=== PATIENT | female | born 1930 | race Caucasian/White ===

== ENCOUNTER 2016-10-02 16:06 | Emergency (ER) | payer MEDICARE ==
[~2016-10-02] VITALS: Ht 165.1 cm; Wt 83.9 kg
[~2016-10-02 16:06] MED LIST: ANTIVERT/2525 M1 PO; ASPIRIN81 M1 PO; B12,B-12,B 12500 MC1 PO; CIPROFLOXACIN500 MG PO; FLEXERIL5 MG PO; HYDROCHLOROTH12.5 M1 PO; IMDUR30 MG PO; LASIX20 MG PO; LISINOPRIL10 MG PO; LOMOTIL 0.025 M1 TA1 PO; LOPRESSOR25 MG PO; Lopressor25 MG PO; PENICILLIN VK500 MG PO; PREDNISONE20 MG PO; PROZAC40 MG PO; PYRIDIUM200 MG PO; VICODIN 5-3001 EACH PO; Vicodin 5/500 505 MG PO; ZOCOR40 MG PO; ZOFRAN ODT4 MG SL
[2016-10-02 16:14] VITALS: BP 140/62
[2016-10-02] MEDS ORDERED: ACETAMINOPHEN-O1 TAB PO (16:15)
[2016-10-02 16:34] LABS: BILIRUBIN NEGATIVE (NEGATIVE); BLOOD 2+ (NEGATIVE); CLARITY SL CLOUDY (CLEAR); COLOR YELLOW (YELLOW); GLUCOSE NEGATIVE (NEGATIVE); KETONE NEGATIVE (NEGATIVE); LEUKO ESTERASE 1+ (NEGATIVE); NITRITE NEGATIVE (NEGATIVE); PH 5.5 (5.0-9.0); PROTEIN TRACE (NEGATIVE)
[2016-10-02 16:38] LABS: WBC TNTC wbc/hpf (0-5)
[2016-10-02 16:39] LABS: BACTERIA 2+; URINE REFLEX COMMENT YES (NO)
[2016-10-02] MEDS ORDERED: BACTRIM DS 8001 TA1 PO (17:25)
[2016-10-02] MEDS ORDERED: CYCLOBENZAPRINE5 M3 PO (17:25)
== END 2016-10-02 17:27 | disposition home or self-care (01) ==
LOC: ED 16:06
PROVIDERS: Nurse Practitioner Family
DX: G89.29 Other chronic pain (principal); M54.5 Low back pain; I10 Essential (primary) hypertension; I71.4 Abdominal aortic aneurysm, without rupture; N39.0 Urinary tract infection, site not specified; R31.9 Hematuria, unspecified; Z79.82 Long term (current) use of aspirin; Z79.899 Other long term (current) drug therapy; E78.5 Hyperlipidemia, unspecified

== ENCOUNTER 2016-10-27 12:15 | Emergency (ER) | payer MEDICARE ==
[~2016-10-27 12:15] MED LIST changes: +ACETAMINOPHEN-O1 TAB PO; +BACTRIM DS 8001 TA1 PO; +CYCLOBENZAPRINE5 M3 PO
[2016-10-27 12:20] VITALS: BP 145/89
[2016-10-27] MEDS ORDERED: Orphenadrine C100 MG PO (14:33)
[2016-10-27] MEDS ORDERED: PROVENTIL0.09 MG/A1 INH (14:43)
[2016-10-27] MEDS ORDERED: VIBRAMYCIN100 MG PO (14:43)
[2016-10-27] MEDS ORDERED: DUONEB 3 MG/3 ML3 M1 INH (14:43)
== END 2016-10-27 14:41 | disposition home or self-care (01) ==
LOC: ED 12:15
DX: M48.54XA Collapsed vertebra, not elsewhere classified, thoracic region, initial encounter for fracture (principal); I10 Essential (primary) hypertension; E78.5 Hyperlipidemia, unspecified; Z79.82 Long term (current) use of aspirin; Z79.899 Other long term (current) drug therapy

== ENCOUNTER → 2016-12-01 | Outpatient (CLI) | payer MEDICARE ==
[~2016-12-01] MED LIST changes: +DUONEB 3 MG/3 ML3 M1 INH; +Orphenadrine C100 MG PO; +PROVENTIL0.09 MG/A1 INH; +VIBRAMYCIN100 MG PO
== END | disposition home or self-care (01) ==
LOC: MRI 12:57
DX: S22.000D Wedge compression fracture of unspecified thoracic vertebra, subsequent encounter for fracture with routine healing (principal); M48.04 Spinal stenosis, thoracic region; M47.894 Other spondylosis, thoracic region; X58.XXXD Exposure to other specified factors, subsequent encounter

== ENCOUNTER 2017-02-11 16:32 | Emergency (ER) | payer MEDICARE ==
[~2017-02-11] VITALS: Wt 81.6 kg
[2017-02-11 18:11] VITALS: BP 162/80
[2017-02-11] MEDS ORDERED: PERCOCET 5-3251 EACH PO (18:45)
== END 2017-02-11 18:47 | disposition home or self-care (01) ==
LOC: ED 16:32
DX: S32.019A Unspecified fracture of first lumbar vertebra, initial encounter for closed fracture (principal); W01.0XXA Fall on same level from slipping, tripping and stumbling without subsequent striking against object, initial encounter; Y93.89 Activity, other specified; Y99.8 Other external cause status; Y92.89 Other specified places as the place of occurrence of the external cause

== ENCOUNTER → 2017-02-15 | Outpatient (CLI) | payer MEDICARE ==
[~2017-02-15] MED LIST changes: +MEDROL DOSEPAK4 MG PO; +PERCOCET 5-3251 EACH PO
== END | disposition home or self-care (01) ==
LOC: MRI 13:00
DX: S32.010A Wedge compression fracture of first lumbar vertebra, initial encounter for closed fracture (principal); S22.080A Wedge compression fracture of T11-T12 vertebra, initial encounter for closed fracture; X58.XXXA Exposure to other specified factors, initial encounter; Y93.89 Activity, other specified; Y92.89 Other specified places as the place of occurrence of the external cause; Y99.8 Other external cause status

== ENCOUNTER 2017-02-16 14:44 | Emergency (ER) | payer MEDICARE ==
[~2017-02-16] VITALS: Ht 165.1 cm; Wt 81.6 kg
[~2017-02-16 14:44] MED LIST changes: -MEDROL DOSEPAK4 MG PO
[2017-02-16 14:49] VITALS: BP 134/72
[2017-02-16] MEDS ORDERED: MEDROL DOSEPAK4 MG PO (15:14)
== END 2017-02-16 15:19 | disposition home or self-care (01) ==
LOC: ED 14:44
DX: G89.29 Other chronic pain (principal); M54.5 Low back pain; Z98.890 Other specified postprocedural states; Z90.710 Acquired absence of both cervix and uterus; Z79.82 Long term (current) use of aspirin; Z79.899 Other long term (current) drug therapy

== ENCOUNTER 2017-04-09 12:48 | Emergency (ER) | payer MEDICARE ==
[~2017-04-09] VITALS: Ht 165.1 cm; Wt 81.6 kg
[~2017-04-09 12:48] MED LIST changes: +MEDROL DOSEPAK4 MG PO
[2017-04-09 12:59] VITALS: BP 162/71
[2017-04-09 13:58] LABS: HEMATOCRIT 39.6 % (37.0-47.0); MEAN CELL VOLUME 99.7 fl (81.0-99.0); MEAN CORPUSCULAR HGB 32.7 pg (27.0-31.0); MEAN CORPUSCULAR HGB CONC 32.8 g/dl (33.0-37.0); MEAN PLATELET VOLUME 10.1 fl (9.6-12.3); PLATELET COUNT AUTOMATED 260 10*3/uL (130-400); RED BLOOD COUNT 3.97 10*6/uL (4.10-5.10); RED CELL DISTRI WIDTH 13.2 % (0-14.5); WHITE BLOOD COUNT 8.7 10*3/uL (4.8-10.8)
[2017-04-09 14:06] LABS: ACT PARTIAL THROMBO TIME 29.4 SECONDS (20.8-31.5); INTERNATIONAL NORM RATIO 1.8 (2.0-3.5)
[2017-04-09 14:12] LABS: TOTAL CELLS COUNTED 100 #CELLS
[2017-04-09 14:13] LABS: ALBUMIN 2.9 gm/dl (3.1-4.5); ALKALINE PHOSPHATASE 51 U/L (45-117); BUN 16 mg/dl (7-24); CHLORIDE 105 mmol/L (98-107); CREATININE 0.68 mg/dL (0.55-1.02); LIPASE 51 U/L (73-393); PLATELET SUFFICIENCY NORMAL (NORMAL); POTASSIUM 3.2 mmol/L (3.5-5.1); SGOT/AST 18 IU/L (3-35); SGPT/ALT 14 U/L (12-78); SODIUM 141 mmol/L (136-145); TOTAL PROTEIN 7.3 gm/dL (6.4-8.2); TROPONIN I 0.023 ng/ml (<0.045)
[2017-04-09 14:14] LABS: OVALOCYTES FEW
[2017-04-09 14:37] LABS: BILIRUBIN 1+ (NEGATIVE); BLOOD 2+ (NEGATIVE); CLARITY CLOUDY (CLEAR); COLOR YELLOW (YELLOW); GLUCOSE NEGATIVE (NEGATIVE); KETONE TRACE (NEGATIVE); LEUKO ESTERASE 1+ (NEGATIVE); NITRITE NEGATIVE (NEGATIVE); PH 5.5 (5.0-9.0); SPECIFIC GRAVITY 1.025 (1.005-1.030)
[2017-04-09 14:45] LABS: BACTERIA 2+; MUCOUS 1+; WBC 51-100 wbc/hpf (0-5)
[2017-04-09 14:46] LABS: RBC 16-20 rbc/hpf (0-2)
[2017-04-09 15:26] LABS: FREE T4 1.3 ng/dl (0.76-1.46)
[2017-04-09 15:30] LABS: THYROID STIM HORMONE (HS) 1.34 uIU/ml (0.358-4.75)
[2017-04-09] MEDS ORDERED: LEVAQUIN750 M1 PO (15:57)
== END 2017-04-09 16:10 | disposition home or self-care (01) ==
LOC: ED 12:48
PROVIDERS: Emergency Medicine
DX: J20.9 Acute bronchitis, unspecified (principal); N39.0 Urinary tract infection, site not specified; G89.29 Other chronic pain; I10 Essential (primary) hypertension; E78.5 Hyperlipidemia, unspecified; F32.9 Major depressive disorder, single episode, unspecified; E87.6 Hypokalemia; Z79.899 Other long term (current) drug therapy; Z79.82 Long term (current) use of aspirin

== ENCOUNTER 2017-08-26 17:32 | Emergency (ER) | payer MEDICARE ==
[~2017-08-26] VITALS: Ht 165.1 cm; Wt 74.8 kg
[~2017-08-26 17:32] MED LIST changes: +LEVAQUIN750 M1 PO
[2017-08-26 17:36] VITALS: BP 154/95
[2017-08-26 17:53] LABS: BILIRUBIN NEGATIVE (NEGATIVE); BLOOD 2+ (NEGATIVE); CLARITY CLOUDY (CLEAR); COLOR YELLOW (YELLOW); GLUCOSE NEGATIVE (NEGATIVE); KETONE TRACE (NEGATIVE); LEUKO ESTERASE 3+ (NEGATIVE); NITRITE POSITIVE (NEGATIVE); PH 5.5 (5.0-9.0)
[2017-08-26 18:05] LABS: WBC TNTC wbc/hpf (0-5)
[2017-08-26] MEDS ORDERED: PYRIDIUM200 M1 PO (18:12)
[2017-08-26] MEDS ORDERED: SEPTDS PO (18:12)
== END 2017-08-26 18:28 | disposition home or self-care (01) ==
LOC: ED 17:32
PROVIDERS: Nurse Practitioner Family
DX: N39.0 Urinary tract infection, site not specified (principal); R31.9 Hematuria, unspecified; R03.0 Elevated blood-pressure reading, without diagnosis of hypertension; Z90.710 Acquired absence of both cervix and uterus; Z98.890 Other specified postprocedural states; Z79.82 Long term (current) use of aspirin; Z79.899 Other long term (current) drug therapy

== ENCOUNTER 2018-12-13 13:24 | Emergency (ER) | payer MEDICARE ==
[~2018-12-13] VITALS: Ht 165.1 cm; Wt 69.4 kg
[~2018-12-13 13:24] MED LIST changes: +COUMADIN1 M1 PO; +COUMADIN5 M2 PO; +PYRIDIUM200 M1 PO; +SEPTDS PO; +ZESTRIL10 MG PO
[2018-12-13 13:27] VITALS: BP 203/82
== END 2018-12-13 15:30 | disposition home or self-care (01) ==
LOC: ED 13:24
DX: K59.00 Constipation, unspecified (principal); E78.5 Hyperlipidemia, unspecified; I10 Essential (primary) hypertension; Z79.899 Other long term (current) drug therapy; Z79.01 Long term (current) use of anticoagulants

== ENCOUNTER 2019-05-30 14:07 | Emergency (ER) | payer MEDICARE ==
[~2019-05-30] VITALS: Ht 165.1 cm; Wt 78.9 kg
[2019-05-30 15:15] VITALS: BP 125/93
[2019-05-30 15:21] LABS: BASO % 0.6 % (0.0-1.0); EOS % 0.6 % (1.0-4.0); HEMATOCRIT 45.2 % (37.0-47.0); HEMOGLOBIN 14.1 g/dl (12.0-16.0); LYMPH # 1.5 10*3/uL (1.3-4.4); LYMPH % 20.9 % (27.0-41.0); MEAN CELL VOLUME 106.4 fl (81.0-99.0); MEAN CORPUSCULAR HGB 33.2 pg (27.0-31.0); MEAN CORPUSCULAR HGB CONC 31.2 g/dl (33.0-37.0); MEAN PLATELET VOLUME 10.5 fl (9.6-12.3); MONO # 0.6 10*3/uL (0.1-1.0); MONO % 8.8 % (3.0-9.0); NEUT % 68.8 % (47.0-73.0); PLATELET COUNT AUTOMATED 223 10*3/uL (130-400); RED BLOOD COUNT 4.25 10*6/uL (4.10-5.10); RED CELL DISTRI WIDTH 16.2 % (0-14.5); WHITE BLOOD COUNT 7.2 10*3/uL (4.8-10.8)
[2019-05-30 15:34] LABS: ACT PARTIAL THROMBO TIME 33.8 SECONDS (20.0-32.1); INTERNATIONAL NORM RATIO 3.3 (2.0-3.5)
[2019-05-30 15:37] LABS: ALBUMIN 3.4 gm/dl (3.1-4.5); CREATININE 1.09 mg/dL (0.55-1.02); POTASSIUM 3.6 mmol/L (3.5-5.1); TOTAL PROTEIN 7.4 gm/dL (6.4-8.2)
[2019-05-30 15:38] LABS: TROPONIN I 0.033 ng/ml (<0.045)
[2019-05-30 18:04] LABS: CLARITY CLEAR (CLEAR); COLOR YELLOW (YELLOW); PH 7.5 (5.0-9.0); SPECIFIC GRAVITY 1.015 (1.005-1.030); UROBILINOGEN 0.2 E.U./dl (0.2-1.0)
[2019-05-30 18:05] LABS: BILIRUBIN NEGATIVE (NEGATIVE); BLOOD 1+ (NEGATIVE); GLUCOSE NEGATIVE (NEGATIVE); KETONE NEGATIVE (NEGATIVE); LEUKO ESTERASE NEGATIVE (NEGATIVE); NITRITE NEGATIVE (NEGATIVE)
== END 2019-05-30 19:01 | disposition home or self-care (01) ==
LOC: ED 14:07
PROVIDERS: Emergency Medicine
DX: I11.0 Hypertensive heart disease with heart failure (principal); I50.9 Heart failure, unspecified; R32 Unspecified urinary incontinence; M79.89 Other specified soft tissue disorders; R10.9 Unspecified abdominal pain; G89.29 Other chronic pain; E78.00 Pure hypercholesterolemia, unspecified; M19.90 Unspecified osteoarthritis, unspecified site; Z79.899 Other long term (current) drug therapy; Z79.01 Long term (current) use of anticoagulants; Z87.891 Personal history of nicotine dependence; Z90.710 Acquired absence of both cervix and uterus; Z86.718 Personal history of other venous thrombosis and embolism

== ENCOUNTER 2019-06-08 15:25 | Emergency (ER) | payer MEDICARE ==
[~2019-06-08] VITALS: Ht 165.1 cm; Wt 79.4 kg
[2019-06-08 15:38] VITALS: BP 142/74
[2019-06-08 16:34] LABS: BILIRUBIN NEGATIVE (NEGATIVE); BLOOD 3+ (NEGATIVE); CLARITY CLOUDY (CLEAR); COLOR YELLOW (YELLOW); GLUCOSE NEGATIVE (NEGATIVE); KETONE TRACE (NEGATIVE); NITRITE POSITIVE (NEGATIVE); PH 6.5 (5.0-9.0); SPECIFIC GRAVITY 1.025 (1.005-1.030)
[2019-06-08 16:35] LABS: LEUKO ESTERASE 2+ (NEGATIVE)
[2019-06-08 16:39] LABS: RBC TNTC rbc/hpf (0-2); WBC 21-30 wbc/hpf (0-5)
[2019-06-08 16:40] LABS: BACTERIA 3+
[2019-06-08 17:30] LABS: BASO % 0.2 % (0.0-1.0); EOS % 0.2 % (1.0-4.0); HEMATOCRIT 41.5 % (37.0-47.0); LYMPH # 1.1 10*3/uL (1.3-4.4); LYMPH % 12.1 % (27.0-41.0); MEAN CELL VOLUME 105.6 fl (81.0-99.0); MEAN CORPUSCULAR HGB 33.1 pg (27.0-31.0); MEAN CORPUSCULAR HGB CONC 31.3 g/dl (33.0-37.0); MEAN PLATELET VOLUME 10.8 fl (9.6-12.3); MONO # 0.9 10*3/uL (0.1-1.0); MONO % 9.8 % (3.0-9.0); NEUT # 7.1 10*3/uL (2.3-7.9); NEUT % 77.2 % (47.0-73.0); PLATELET COUNT AUTOMATED 209 10*3/uL (130-400); RED BLOOD COUNT 3.93 10*6/uL (4.10-5.10); RED CELL DISTRI WIDTH 16.2 % (0-14.5); WHITE BLOOD COUNT 9.2 10*3/uL (4.8-10.8)
[2019-06-08 17:39] LABS: INTERNATIONAL NORM RATIO 3.8 (2.0-3.5)
[2019-06-08 17:45] LABS: ALBUMIN 3.1 gm/dl (3.1-4.5); CREATININE 1.06 mg/dL (0.55-1.02); POTASSIUM 3.8 mmol/L (3.5-5.1)
[2019-06-08] MEDS ORDERED: CEPHALEXIN500 M1 PO (18:45)
[2019-06-08] MEDS ORDERED: NYSTATIN CREAM15 GM T (18:51)
== END 2019-06-08 19:00 | disposition home or self-care (01) ==
LOC: ED 15:25
PROVIDERS: Nurse Practitioner Family
DX: T83.511A Infection and inflammatory reaction due to indwelling urethral catheter, initial encounter (principal); N39.0 Urinary tract infection, site not specified; B37.2 Candidiasis of skin and nail; G89.29 Other chronic pain; M19.90 Unspecified osteoarthritis, unspecified site; I11.0 Hypertensive heart disease with heart failure; I50.9 Heart failure, unspecified; E78.00 Pure hypercholesterolemia, unspecified; Z79.899 Other long term (current) drug therapy; Z79.01 Long term (current) use of anticoagulants; Z86.718 Personal history of other venous thrombosis and embolism; Y84.8 Other medical procedures as the cause of abnormal reaction of the patient, or of later complication, without mention of misadventure at the time of the procedure; Y92.098 Other place in other non-institutional residence as the place of occurrence of the external cause

== ENCOUNTER 2019-10-11 16:23 | Emergency (ER) | payer MEDICARE ==
[~2019-10-11] VITALS: Ht 165.1 cm; Wt 77.1 kg
[~2019-10-11 16:23] MED LIST changes: +CEPHALEXIN500 M1 PO; +NYSTATIN CREAM15 GM T
[2019-10-11 16:47] VITALS: BP 139/88
[2019-10-11 17:02] LABS: BASO % 0.6 % (0.0-1.0); EOS # 0.1 10*3/uL (0.0-0.4); EOS % 0.8 % (1.0-4.0); HEMATOCRIT 45.1 % (37.0-47.0); LYMPH # 1.5 10*3/uL (1.3-4.4); LYMPH % 22.7 % (27.0-41.0); MEAN CELL VOLUME 105.1 fl (81.0-99.0); MEAN CORPUSCULAR HGB 31.9 pg (27.0-31.0); MEAN CORPUSCULAR HGB CONC 30.4 g/dl (33.0-37.0); MEAN PLATELET VOLUME 10.9 fl (9.6-12.3); MONO # 0.6 10*3/uL (0.1-1.0); MONO % 9.8 % (3.0-9.0); NEUT # 4.2 10*3/uL (2.3-7.9); NEUT % 65.8 % (47.0-73.0); PLATELET COUNT AUTOMATED 210 10*3/uL (130-400); RED BLOOD COUNT 4.29 10*6/uL (4.10-5.10); RED CELL DISTRI WIDTH 17.2 % (0-14.5); WHITE BLOOD COUNT 6.4 10*3/uL (4.8-10.8)
[2019-10-11 17:17] LABS: ALKALINE PHOSPHATASE 100 U/L (45-117); BUN 15 mg/dl (7-24); CHLORIDE 112 mmol/L (98-107); CREATININE 0.92 mg/dL (0.55-1.02); POTASSIUM 4.3 mmol/L (3.5-5.1); SGOT/AST 24 IU/L (3-35); SGPT/ALT 14 U/L (12-78); SODIUM 141 mmol/L (136-145); TOTAL PROTEIN 7.4 gm/dL (6.4-8.2)
[2019-10-11] MEDS ORDERED: LASIX20 MG PO (19:23)
== END 2019-10-11 19:24 | disposition home or self-care (01) ==
LOC: ED 16:23
PROVIDERS: Nurse Practitioner Family
DX: R60.0 Localized edema (principal); F41.9 Anxiety disorder, unspecified; F32.9 Major depressive disorder, single episode, unspecified; I10 Essential (primary) hypertension; E78.00 Pure hypercholesterolemia, unspecified; M19.90 Unspecified osteoarthritis, unspecified site; Z88.8 Allergy status to other drugs, medicaments and biological substances; Z79.01 Long term (current) use of anticoagulants; Z79.2 Long term (current) use of antibiotics

== ENCOUNTER → 2019-12-19 | Outpatient (CLI) | payer MEDICARE ==
[2019-12-19 15:37] LABS: BUN 16 mg/dl (7-24); CREATININE 0.96 mg/dL (0.55-1.02)
== END | disposition home or self-care (01) ==
LOC: CT 14:00 → LAB 14:14
PROVIDERS: ATTEND Urology
DX: R31.29 Other microscopic hematuria (principal)

== ENCOUNTER 2019-12-23 18:50 | Inpatient (IN) | payer MEDICARE ==
[~2019-12-23] VITALS: Ht 165.1 cm; Wt 64.5 kg
[~2019-12-23 18:50] MED LIST changes: -COUMADIN1 M1 PO; +Coumadin2 MG PO
[2019-12-23 19:16] VITALS: BP 130/68
[2019-12-23 20:23] LABS: BASO # 0.1 10*3/uL (0.0-0.1); BASO % 0.6 % (0.0-1.0); EOS # 0.1 10*3/uL (0.0-0.4); EOS % 0.8 % (1.0-4.0); HEMATOCRIT 45.5 % (37.0-47.0); LYMPH # 0.9 10*3/uL (1.3-4.4); LYMPH % 11.9 % (27.0-41.0); MEAN CELL VOLUME 103.4 fl (81.0-99.0); MEAN CORPUSCULAR HGB 31.8 pg (27.0-31.0); MEAN CORPUSCULAR HGB CONC 30.8 g/dl (33.0-37.0); MEAN PLATELET VOLUME 10.5 fl (9.6-12.3); MONO # 0.6 10*3/uL (0.1-1.0); MONO % 8.2 % (3.0-9.0); NEUT # 6.1 10*3/uL (2.3-7.9); NEUT % 78.2 % (47.0-73.0); PLATELET COUNT AUTOMATED 254 10*3/uL (130-400); RED CELL DISTRI WIDTH 16.9 % (0-14.5); WHITE BLOOD COUNT 7.8 10*3/uL (4.8-10.8)
[2019-12-23 20:34] LABS: ACT PARTIAL THROMBO TIME 38.7 SECONDS (20.0-32.1); INTERNATIONAL NORM RATIO 2.9 (2.0-3.5)
[2019-12-23 20:39] LABS: ALBUMIN 2.2 gm/dl (3.1-4.5); ALKALINE PHOSPHATASE 147 U/L (45-117); BUN 14 mg/dl (7-24); CHLORIDE 105 mmol/L (98-107); CREATININE 1.09 mg/dL (0.55-1.02); LIPASE 37 U/L (73-393); SGOT/AST 41 IU/L (3-35); SGPT/ALT 15 U/L (12-78); SODIUM 138 mmol/L (136-145); TOTAL PROTEIN 7.5 gm/dL (6.4-8.2)
[2019-12-23 20:41] LABS: TROPONIN I < 0.015 ng/ml (<0.045)
[2019-12-23 22:55] VITALS: BP 115/62
--- NOTE | 2019-12-23 22:55 | NUR ---
Time: 2254 An 89 year old FEMALE admitted to under services of CHIARA DIXON DO, Pt. arrived via stretcher from ER. Chief complaint: ABNORMAL LABS-SENT FROM 'S OFFICE. DELIA CARRINGTON
--- NOTE | 2019-12-23 23:19 | NUR ---
NOTIFIED OF PT'S CODE STATUS CHANGE. PT IS A FULL CODE PER DAUGHTER.
[2019-12-23] MEDS ORDERED: ATORVASTATIN CA40 M1 PO (23:27)
[2019-12-23] MEDS ORDERED: FUROSEMIDE20 M1 PO (23:28)
[2019-12-23] MEDS ORDERED: POTASSIUM CHLO20 ME3 PO (23:29)
[2019-12-23] MEDS ORDERED: WARFARIN SOD5 MG PO (23:31)
[2019-12-23] MEDS ORDERED: FLUOXETINE HCL10 MG PO (23:34)
[2019-12-23] MEDS ORDERED: STOOL SOFTENER100 M3 PO (23:38)
--- NOTE | 2019-12-23 23:40 | NUR ---
MED REC UP TO DATE PER DAUGHTER JOSIE. JOSIE CAN BE REACHED AT: HOME: [phone] CELL: [phone]
[2019-12-24] VITALS: BP 115/62
--- NOTE | 2019-12-24 00:25 | NUR ---
NOTIFIED OF ORDER FOR STRICT I&O NOT POSSIBLE DUE TO PT BEING INCONTINENT IN BRIEF. RN QUESTIONED NEED FOR JAY. NO JAY PER . UNABLE TO COLLECT UA^UC FOR THIS REASON. ALSO NOTIFED OF MED REC UP TO DATE PER DAUGHTER.
[2019-12-24 06:49] LABS: BASO % 0.7 % (0.0-1.0); EOS # 0.1 10*3/uL (0.0-0.4); EOS % 2.1 % (1.0-4.0); HEMATOCRIT 42.2 % (37.0-47.0); LYMPH # 0.9 10*3/uL (1.3-4.4); LYMPH % 15.5 % (27.0-41.0); MEAN CELL VOLUME 102.9 fl (81.0-99.0); MEAN PLATELET VOLUME 10.3 fl (9.6-12.3); MONO # 0.6 10*3/uL (0.1-1.0); MONO % 10.5 % (3.0-9.0); NEUT # 4.3 10*3/uL (2.3-7.9); PLATELET COUNT AUTOMATED 218 10*3/uL (130-400); RED CELL DISTRI WIDTH 16.8 % (0-14.5); WHITE BLOOD COUNT 6.1 10*3/uL (4.8-10.8)
[2019-12-24 07:27] LABS: ALBUMIN 2.1 gm/dl (3.1-4.5); CREATININE 1.05 mg/dL (0.55-1.02); TOTAL PROTEIN 6.5 gm/dL (6.4-8.2)
--- NOTE | 2019-12-24 07:29 | NUR ---
Nursing screen received and chart reviewed. Patient admitted for acute exacerbation CHF and ascites. If patient has a decline in ADLs, transfers, or functional mobility, please send OT orders. Thank you. Tiny Abdullahi, OTR/L
[2019-12-24 07:30] LABS: POTASSIUM 3.8 mmol/L (3.5-5.1)
[2019-12-24 07:39] LABS: INTERNATIONAL NORM RATIO 2.8 (2.0-3.5)
--- NOTE | 2019-12-24 07:42 | NUR ---
PHYSICAL THERAPY Screen received pt admitted from home with CHF,Ascites,BLE cellulitis, please consult PT if pt has a decline in functional status from baseline, thank you. Herlinda Sellers PT
[2019-12-24 08:00] VITALS: BP 134/64
[2019-12-24 08:22] LABS: VITAMIN D, 25-HYDROXY 14.8 ng/mL (30-100)
--- NOTE | 2019-12-24 09:00 | NUR ---
Political Science Instructor in to talk to patient. Patient states lives at home with . There are no steps in the home. Physician: jasbir gilliland Pharmacy: [facility] Home health services: none Patient's level of ADLs: MINIMAL ASSIST Patient has working utilities: all working DME: walker Follow-up physician's appointment after d/c: will be made by hospitalist nurse director upon discharge Does patient want to access PORTAL?: no Discharge plan discussed with patient, she states she lives at home with her , she uses a walker for ambulation and is independent in adls, she states she is having some difficulty lately ambulation, she states she feels weak, discussed with her a short term detention for 5 days of rehab and 24 hour care, she became angry and stated she would not even consider going to a SNF, case management also dicussed [facility] and educated her on the services they provide. she stated she has used [facility] in the past and is familiar with what they offer, she wanted to think about [facility] services, case management will follow. CAMI VUONG
--- NOTE | 2019-12-24 15:00 | NUR ---
COOLER SERVICER RECEIVED DPOA-HC PAPERS FROM PATIENTS DAUGHTER. WILL HAVE A COLLEAGUE WITNESS PATIENT SIGNATURE.
[2019-12-24 16:00] VITALS: BP 93/46
--- NOTE | 2019-12-24 20:10 | NUR ---
KAREN TO D/C UA^UC ORDER PER . PT IS INCONTINENT OF URINE.
[2019-12-24 20:20] VITALS: BP 102/52
[2019-12-25] VITALS: BP 98/44
--- NOTE | 2019-12-25 02:03 | NUR ---
PT ASLEEP IN BED. NO S/S OF DISTRESS NOTED. WILL MONITOR. CALL LIGHT IN REACH.
[2019-12-25 06:04] LABS: BASO % 0.6 % (0.0-1.0); EOS # 0.1 10*3/uL (0.0-0.4); EOS % 1.9 % (1.0-4.0); HEMATOCRIT 39.1 % (37.0-47.0); LYMPH # 0.9 10*3/uL (1.3-4.4); LYMPH % 13.7 % (27.0-41.0); MEAN CELL VOLUME 102.6 fl (81.0-99.0); MEAN CORPUSCULAR HGB 32.3 pg (27.0-31.0); MEAN CORPUSCULAR HGB CONC 31.5 g/dl (33.0-37.0); MEAN PLATELET VOLUME 10.2 fl (9.6-12.3); MONO # 0.8 10*3/uL (0.1-1.0); MONO % 11.8 % (3.0-9.0); NEUT # 4.6 10*3/uL (2.3-7.9); NEUT % 71.7 % (47.0-73.0); PLATELET COUNT AUTOMATED 201 10*3/uL (130-400); RED BLOOD COUNT 3.81 10*6/uL (4.10-5.10); RED CELL DISTRI WIDTH 16.7 % (0-14.5); WHITE BLOOD COUNT 6.4 10*3/uL (4.8-10.8)
[2019-12-25 06:26] LABS: BUN 12 mg/dl (7-24); CHLORIDE 105 mmol/L (98-107); CREATININE 0.88 mg/dL (0.55-1.02); POTASSIUM 3.2 mmol/L (3.5-5.1); SODIUM 141 mmol/L (136-145)
[2019-12-25 06:36] LABS: INTERNATIONAL NORM RATIO 2.1 (2.0-3.5)
[2019-12-25 08:00] VITALS: BP 134/56
--- NOTE | 2019-12-25 09:00 | NUR ---
case management visits with patient, again discussed with her a discharge plan including a short term assisted for rehab prior to returning home, she declined, also discussed [facility] and she wasn't sure she wanted this either. case management asked for physical therapy and occupational therapy orders to see how well she ambulates and can care for herself, will talk with patient again after the pt/ot eval
--- NOTE | 2019-12-25 10:14 | NUR ---
[facility] AWARE OF CONSULT.
--- NOTE | 2019-12-25 11:15 | NUR ---
OT NOTE Occupational therapy order received and chart reviewed. Patient supine in bed with HOB elevated upon arrival. Patient declining an OT evaluation at this time stating "No, I need to rest. They keep waking me up." Patient educated on benefits/purpose of therapy and continued to refuse. Will check back at a later date for completion of an OT evaluation. Thank you. Tiny Abdullahi, OTR/L
--- NOTE | 2019-12-25 11:32 | NUR ---
PHYSICAL THERAPY Attempted to see pt for evaluation at the bedside, pt declining therapy at this time stating "I just need to rest, they keep waking me up" will follow at at later date spoke with primary nurse Janine. Herlinda Sellers PT
[2019-12-25 12:00] VITALS: BP 104/52
--- NOTE | 2019-12-25 14:20 | NUR ---
Occupational Therapy evaluation completed on four with full evaluation to follow. Recommend occupational therapy per plan of care and SNF upon discharge. Patient became upset when discussing SNF recommendation. OTR discussed benefits of SNF and continued therapy to maximize safety and independence with ADLs, transfers prior to return to home however patient declined. Discussed HH with increased supervision assistance at home and patient continued to decline HH. Spoke with CM following in regards to SNF discussion with patient. Thank you for this referral. Tiny Abdullahi, OTR/[facility]
--- NOTE | 2019-12-25 14:20 | NUR ---
PHYSICAL THERAPY Physical Therapy evaluation completed on 4th floor with full evaluation to follow. Recommend physical therapy per plan of care and SNF however pt adamently refusing any SNF or HH services, did discuss w CM. Pt will require 24 hr care upon discharge. Thank you for this referral. Herlinda Sellers PT
--- NOTE | 2019-12-25 15:09 | NUR ---
Patient referral faxed to [facility] for review. Waiting on PT/OT evals and covid ordered.
--- NOTE | 2019-12-25 15:11 | NUR ---
MEDICATED WITH PRN PERCOCET PER ORDER AND REQUEST. PATIENT ABSOLUTELY REFUSED TO BE SWABBED FOR [facility] STATES SHE IS GOING HOME NOT TO ANY FACILITY.
[2019-12-25 16:00] VITALS: BP 107/50
[2019-12-25 20:00] VITALS: BP 99/50
--- NOTE | 2019-12-25 21:00 | NUR ---
PATIENT AWAKE, LAYING IN BED. VOICES NO COMPLAINTS. RESPIRATIONS EASY, NON LABORED. BED IN LOWEST POSITION CALL LIGHT WITHIN REACH. WILL CONTINUE TO MONITOR.
--- NOTE | 2019-12-25 22:53 | NUR ---
PATIENT C/O BACK PAIN 09/17. MEDICATED WITH PERCOCET. WILL CONTINUE TO MONITOR.
--- NOTE | 2019-12-25 23:53 | NUR ---
PATIENT STATES PEROCET HELPED. VOICES NO OTHER COMPLAINTS. WILL CONTINUE TO MONITOR.
[2019-12-26] VITALS: BP 120/60
--- NOTE | 2019-12-26 04:00 | NUR ---
PATIENT SLEEPING, NO SIGNS OF DISTRESS. WILL CONTINUE TO MONITOR.
[2019-12-26 06:23] LABS: BASO % 0.5 % (0.0-1.0); EOS # 0.1 10*3/uL (0.0-0.4); EOS % 1.9 % (1.0-4.0); HEMATOCRIT 40.9 % (37.0-47.0); LYMPH # 0.9 10*3/uL (1.3-4.4); LYMPH % 15.2 % (27.0-41.0); MEAN CELL VOLUME 103.8 fl (81.0-99.0); MEAN CORPUSCULAR HGB 32.5 pg (27.0-31.0); MEAN CORPUSCULAR HGB CONC 31.3 g/dl (33.0-37.0); MEAN PLATELET VOLUME 10.3 fl (9.6-12.3); MONO # 0.7 10*3/uL (0.1-1.0); MONO % 10.5 % (3.0-9.0); NEUT # 4.4 10*3/uL (2.3-7.9); NEUT % 71.6 % (47.0-73.0); PLATELET COUNT AUTOMATED 219 10*3/uL (130-400); RED BLOOD COUNT 3.94 10*6/uL (4.10-5.10); RED CELL DISTRI WIDTH 16.7 % (0-14.5); WHITE BLOOD COUNT 6.2 10*3/uL (4.8-10.8)
[2019-12-26 06:58] LABS: INTERNATIONAL NORM RATIO 1.8 (2.0-3.5)
[2019-12-26 07:00] LABS: BUN 11 mg/dl (7-24); CHLORIDE 104 mmol/L (98-107); CREATININE 0.96 mg/dL (0.55-1.02); POTASSIUM 3.6 mmol/L (3.5-5.1); SODIUM 139 mmol/L (136-145)
--- NOTE | 2019-12-26 07:30 | NUR ---
TOOK OVER CARE OF PT AT THIS TIME. PT RESTING IN BED, SLEEPING. RESPIRATIONS UNLABORED ON 2L NC. SAFETY MEASURES IN PLACE. CALL LIGHT IN RAECH.
[2019-12-26 08:00] VITALS: BP 157/62
--- NOTE | 2019-12-26 08:30 | NUR ---
PHYSICAL THERAPY Patient seen this am 1:1 for therapy visit and was supine in bed upon therapist arrival. Patient identified by name / and was joined by OT fws faculty assistant this session for observation only as patient transfers supine to sit EOB with MOD A. Patient needed a minute or so static EOB sit to collect herself, then completed sit to stand transfer MIN A with use of wh walker standing support. Patient tolerated approx 5 minutes static stand before completing SPT to BSC, wh walker, MIN A, requiring v/c to improve safe walker navigation. Patient returned to bedside chair and remained semi reclined with call light, tray table, telephone, body alarm for safety. Will continue per POC as tolerated, total treatment time 17 minutes. Micah Taylor, AIR CONDITIONING SHEET METAL INSTALLER
--- NOTE | 2019-12-26 08:50 | NUR ---
OT NOTE Pt laying supine in bed with head elevated agreeable to 25 minute OT session. Identified by name and date of with no complaints. Pt presented to OT with 2L continuous O2. Pt alert and oriented x3. Transfer supine to EOB modA. Pt educated on compensatory method to soledad sockc, however was unable to complete due to pain in feet requiring maxA to soledad hospital socks. Sit-stand from EOB Alyssa with w/w for UB support and safety. modA to change hospital gown due to IV. MaxA to doff and soledad depend due to incontinence. Stand pivot from EOB to BSC CGA with w/w for saftey. Transferring on and off commode Alyssa due to low commode. stand pivot from BSC to EOB CGA with w/w. Second stand pivot from EOB to BSC CGA with w/w. Transferring on and off commode Alyssa due to low commode. clothing managment and hygiene both maxA. Stand-pivot from BSC to recliner Alyssa with w/w due to low recliner. body alarm active and call light in reach. Continue with d/c recommended SNF. DAVID Aguirre/DORIS Ivy/[facility]
[2019-12-26 15:34] VITALS: BP 96/50
--- NOTE | 2019-12-26 15:35 | NUR ---
CARDIOLOGY STATES TO GIVE 80 MG LASIX AT THIS TIME. PHYSICIAN NOTIFIED OF 96/50 BP.
--- NOTE | 2019-12-26 16:14 | NUR ---
PT GIVEN PERCOCET AT THIS TIME FOR BACK PAIN. WILL MONITOR FOR EFFECTIVENESS. CALL LIGHT IN REACH.
--- NOTE | 2019-12-26 17:14 | NUR ---
PERCOCET EFFECTIVE PER PT.
--- NOTE | 2019-12-26 18:17 | NUR ---
PT REFUSING COVID 19 SWAB AT THIS TIME.
[2019-12-26 20:00] VITALS: BP 105/51
--- NOTE | 2019-12-26 21:40 | NUR ---
PATIENT C/O BACK PAIN. RATES 10/17. WILL CHECK EFFECTIVENESS.
--- NOTE | 2019-12-26 22:40 | NUR ---
PATIENT SLEEPING. NO SIGNS OF DISTRESS. PERCOCET EFFECTIVE.
--- NOTE | 2019-12-26 22:41 | NUR ---
SPOKE WITH PATIENTS DAUGHTER REGARDING HER MOTHER POC AND MIKEY IN THE MORNING. ALL QUESTIONS ANSWERED.
[2019-12-27] VITALS (9 sets, daily range): BP systolic 85–129; BP diastolic 45–82
--- NOTE | 2019-12-27 04:00 | NUR ---
PATIENT SLEEPING. NO SIGNS OF DISTRESS. WILL CONTINUE TO MONITOR.
[2019-12-27 06:30] LABS: BASO % 0.5 % (0.0-1.0); EOS # 0.1 10*3/uL (0.0-0.4); EOS % 2.1 % (1.0-4.0); LYMPH # 0.9 10*3/uL (1.3-4.4); LYMPH % 16.2 % (27.0-41.0); MEAN CELL VOLUME 103.9 fl (81.0-99.0); MEAN CORPUSCULAR HGB 31.9 pg (27.0-31.0); MEAN CORPUSCULAR HGB CONC 30.7 g/dl (33.0-37.0); MEAN PLATELET VOLUME 10.3 fl (9.6-12.3); MONO # 0.7 10*3/uL (0.1-1.0); MONO % 11.9 % (3.0-9.0); PLATELET COUNT AUTOMATED 228 10*3/uL (130-400); RED BLOOD COUNT 4.14 10*6/uL (4.10-5.10); RED CELL DISTRI WIDTH 16.5 % (0-14.5); WHITE BLOOD COUNT 5.8 10*3/uL (4.8-10.8)
[2019-12-27 06:43] LABS: BUN 10 mg/dl (7-24); CHLORIDE 101 mmol/L (98-107); CREATININE 0.82 mg/dL (0.55-1.02); POTASSIUM 3.8 mmol/L (3.5-5.1); SODIUM 135 mmol/L (136-145)
[2019-12-27 07:07] LABS: INTERNATIONAL NORM RATIO 1.8 (2.0-3.5)
--- NOTE | 2019-12-27 07:17 | NUR ---
Patient is refusing snf placement at this point. Stating she will go home with home health.
--- NOTE | 2019-12-27 09:00 | NUR ---
case management visits with patient, she will be having a MIKEY today, she states she will return home when discharged and is agreeable with [facility], case management will follow
--- NOTE | 2019-12-27 09:24 | NUR ---
OT NOTE Pt laying supine in bed agreeble to 30 minute OT session. Identified by name and date of with no complaints. Transfer supine to EOB modA X2. MaxA to don socks. Sit-stand from EOB CGA with w/w for UB support and safety. Stand pivot to [facility] CGA with w/w. doffing depend maxA due to urinary incontinence. Michelle to doff and soledad gown due to IV. MaxA to soledad pull up over feet, CGA with w/w to pull pull up over hips. Hygiene maxA. stand pivot back to EOB CGA with w/w. Functional mobility from EOB to hallway CGA with w/w for safety. Functional mobility from hallway to recliner CGA with w/w. Verbal cues needed for walker safety/navigation. Pt left in recliner with alarm active and call light in reach. Pt was able to tolerate approx 10 minutes of activity before without fatigue. Continue d/c recommended SNF. DAVID Aguirre/DORIS Ivy/[facility]
--- NOTE | 2019-12-27 09:45 | NUR ---
PHYSICAL THERAPY Patient seen this am 1:1 for therapy visit and was supine in bed upon therapist arrival. Patient identified by name / and reports feeling a bit sluggish / tired from not sleeping well last night. OT chemistry research assistant was also present for observation only this session as patient transfers supine to sit EOB with MOD A x 2, tolerating several minutes static EOB sit to collect herself. Patient completed sit to stand CGA and ambulated with use of wh walker, CGA, 20'x 2, demonstrating slow, cautious gait pattern for fear of falling. Patient needed v/c to improve safe step sequence during 180 degree turn around and returned to bedside chair with mild fatigue. Patient remained in chair with call light, tray table, telephone and body alarm for safety. Will continue per POC as tolerated, total treatment time 16 minutes. Micah Taylor, SEWING MACHINE REPAIRER
--- NOTE | 2019-12-27 10:00 | NUR ---
PT NPO AT THIS TIME FOR MIKEY TEST. WILL CATCH PT UP ON PO MEDICATIONS AFTER SHE RETURNS FROM MIKEY.
--- NOTE | 2019-12-27 14:00 | NUR ---
PT RETURNS FROM SURGERY. PT CAUGHT UP ON MEDICATIONS. PHYSICIAN GIVES OKAY TO CONTINUE CARDIAC DIET. PT NOTIFIED. PT STABLE AT THIS TIME. RESPIRATIONS UNLABORED ON 2L NC. NO S/S OF DISTRESS. CALL LIGHT IN REACH.
--- NOTE | 2019-12-27 14:24 | NUR ---
PT GIVEN PERCOCET AT THIS TIME FOR C/O BACK PAIN. WILL MONITOR FOR EFFECTIVENESS. CALL LIGHT IN REACH.
--- NOTE | 2019-12-27 15:24 | NUR ---
PERCOCET EFFECTIVE PER PT.
--- NOTE | 2019-12-27 19:30 | NUR ---
PATIENT LAYING IN BED. VOICES NO COMPLAINTS.RESPIRATIONS EASY, NON LABORED. BED IN LOWEST POSITION CALL LIGHT WITHIN REACH. WILL CONTINUE TO MONITOR.
[2019-12-28] VITALS: BP 127/67
--- NOTE | 2019-12-28 04:00 | NUR ---
PATIENT SLEEPING. NO SIGNS OF DISTRESS. WILL CONTINUE TO MONITOR.
[2019-12-28 06:05] LABS: BUN 13 mg/dl (7-24); CHLORIDE 100 mmol/L (98-107); CREATININE 0.94 mg/dL (0.55-1.02); SODIUM 134 mmol/L (136-145)
[2019-12-28 06:17] LABS: BASO # 0.1 10*3/uL (0.0-0.1); BASO % 0.9 % (0.0-1.0); EOS # 0.1 10*3/uL (0.0-0.4); EOS % 1.8 % (1.0-4.0); HEMATOCRIT 43.6 % (37.0-47.0); LYMPH # 0.8 10*3/uL (1.3-4.4); LYMPH % 11.9 % (27.0-41.0); MEAN CELL VOLUME 105.1 fl (81.0-99.0); MEAN CORPUSCULAR HGB CONC 30.5 g/dl (33.0-37.0); MEAN PLATELET VOLUME 10.3 fl (9.6-12.3); MONO # 0.8 10*3/uL (0.1-1.0); MONO % 12.6 % (3.0-9.0); NEUT # 4.7 10*3/uL (2.3-7.9); NEUT % 72.5 % (47.0-73.0); PLATELET COUNT AUTOMATED 239 10*3/uL (130-400); RED BLOOD COUNT 4.15 10*6/uL (4.10-5.10); RED CELL DISTRI WIDTH 16.5 % (0-14.5); WHITE BLOOD COUNT 6.5 10*3/uL (4.8-10.8)
--- NOTE | 2019-12-28 07:00 | NUR ---
ARRIVED ON SHIFT, REPORT RECEIVED FROM OFFGOING SHIFT, ASSUMED CARE OF PATIENT.
--- NOTE | 2019-12-28 07:20 | NUR ---
INTRODUCED SELF TO PATIENT, BED IN LOW POSITION, WHEEL LOCKS ENGAGED, SIDE RAILS UP X 2 FOR TURNING AND REPOSITIONING, CALL LIGHT WITHIN REACH, NO NEEDS VOICED AT THIS TIME, WHITE BOARD UPDATED.
--- NOTE | 2019-12-28 07:52 | NUR ---
Shift chart check completed.
[2019-12-28 08:00] VITALS: BP 93/43
--- NOTE | 2019-12-28 09:59 | NUR ---
PATIENT C/O BACK PAIN DESCRIBES SHARP WITH A RATING OF MEDICATED WITH PERCOCET ORDERED PRN, WHITE BOARD UPDATED.
--- NOTE | 2019-12-28 10:58 | NUR ---
GOOD EFFECT FROM PERCOCET GIVEN X 1 HOUR AGO EVIDENCED BY PATIENT RESTING QUIETLY WITH EYES CLOSED, FACIAL EXPRESSION CALM.
[2019-12-28 12:00] VITALS: BP 102/50
[2019-12-28 16:00] VITALS: BP 87/43
--- NOTE | 2019-12-28 19:30 | NUR ---
TOOK OVER CARE OF PT AT THIS TIME. PT RESTING IN BED. RESPIRATIONS UNLABORED ON ROOM AIR. NO S/S OF DISTRESS. SAFETY MEAUSRES IN PLACE. HOB ELEVATED. CALL LIGHT IN REACH.
[2019-12-28 20:00] VITALS: BP 84/52
--- NOTE | 2019-12-28 20:30 | NUR ---
DR JOHNSON NOTIFIED OF PT BLOOD PRESSURE READING. NO NEW ORDERS. WILL CONTINUE TO MONITOR.
--- NOTE | 2019-12-28 20:44 | NUR ---
PT GIVEN PERCOCET AT THIS TIME FOR C/O BACK PAIN. WILL MONITOR FOR EFFECTIVENESS. CALL LIGHT IN REACH.
--- NOTE | 2019-12-28 21:44 | NUR ---
PERCOCET EFFECTIVE PER PT.
[2019-12-29] VITALS: BP 109/49
--- NOTE | 2019-12-29 03:54 | NUR ---
Shift chart check completed.
[2019-12-29 06:52] LABS: BUN 15 mg/dl (7-24); CHLORIDE 97 mmol/L (98-107); CREATININE 1.01 mg/dL (0.55-1.02); POTASSIUM 3.8 mmol/L (3.5-5.1); SODIUM 135 mmol/L (136-145)
--- NOTE | 2019-12-29 07:00 | NUR ---
ARRIVED ON SHIFT, REPORT RECEIVED FROM OFFGOING NURSE, ASSUMED CARE OF PATIENT.
--- NOTE | 2019-12-29 07:30 | NUR ---
INTRODUCED SELF TO PATIENT, BED IN LOW POSITION, WHEEL LOCKS ENGAGED, BED ALARM ON, CALL LIGHT WITHIN REACH, SIDE RAILS UP X 2 FOR TURNING AND REPOSITIONING,NO NEEDS VOICED AT THIS TIME, WHITE BOARD UPDATED.
[2019-12-29 08:00] VITALS: BP 131/65
--- NOTE | 2019-12-29 08:39 | NUR ---
Shift chart check completed.
[2019-12-29 12:00] VITALS: BP 90/47
[2019-12-29] MEDS ORDERED: FUROSEMIDE40 MG PO (12:31)
[2019-12-29] MEDS ORDERED: KLOR-CON M2020 ME1 PO (12:31)
[2019-12-29] MEDS ORDERED: ALDACTONE25 MG PO (12:31)
--- NOTE | 2019-12-29 13:06 | NUR ---
PATIENT C/O BACK PAIN, REQUESTED PERCOCET BE GIVEN PRIOR TO LEAVING FOR HOME, MEDICATED WITH PERCOCET.
--- NOTE | 2019-12-29 13:20 | NUR ---
Discharge instructions reviewed with patient/family. Patient receptive and verbalizes understanding. Follow-up care arranged. Written instructions given to patient/family, PATIENT REFUSED DISCHARGE PHOTOS, STATES THAT NOT SOMEWHERE PHOTOS NEED TO BE TAKEN, IV REMOVED, REMINDED TO [facility] WHEN SHE GETS HOME, VERSED UNDERSTANDING. TAKEN DOWN VIA W/C TO ER BY PA, WAITING. GARY LOW
--- NOTE | 2019-12-30 07:46 | NUR ---
PHYSICAL THERAPY CO-SIGN I approve of the Physical Therapy notes written above. Herlinda Sellers PT
--- NOTE | 2019-12-30 10:08 | NUR ---
OCCUPATIONAL THERAPY CO-SIGN I approve of the Occupational Therapy notes written above. KASSY CASILLAS OTR/[facility]
== END 2019-12-29 13:20 | disposition home or self-care (01) | DRG 291 ==
LOC: ED 18:50 → 4E 21:28 → EDHOLD 21:28 → 4E 22:25
PROVIDERS: Family Medicine; Internal Medicine; Nurse Practitioner Family; Student in an Organized Health Care Education/Training Program; ADMIT Internal Medicine; ATTEND Internal Medicine
PROC: B24BZZ4 Ultrasonography of Heart with Aorta, Transesophageal (ICD-10-PCS; principal; 2019-12-27)
DX: I11.0 Hypertensive heart disease with heart failure (principal); N17.0 Acute kidney failure with tubular necrosis; E43 Unspecified severe protein-calorie malnutrition; R18.8 Other ascites; I82.409 Acute embolism and thrombosis of unspecified deep veins of unspecified lower extremity; L03.116 Cellulitis of left lower limb; L03.115 Cellulitis of right lower limb; I50.33 Acute on chronic diastolic (congestive) heart failure; D75.89 Other specified diseases of blood and blood-forming organs; R74.0 Nonspecific elevation of levels of transaminase and lactic acid dehydrogenase [LDH]; R32 Unspecified urinary incontinence; R73.9 Hyperglycemia, unspecified; E80.6 Other disorders of bilirubin metabolism; F32.9 Major depressive disorder, single episode, unspecified; E78.5 Hyperlipidemia, unspecified; E55.9 Vitamin D deficiency, unspecified; R00.1 Bradycardia, unspecified; E87.6 Hypokalemia; I50.810 Right heart failure, unspecified; K74.60 Unspecified cirrhosis of liver; G47.34 Idiopathic sleep related nonobstructive alveolar hypoventilation; I35.1 Nonrheumatic aortic (valve) insufficiency; Z79.01 Long term (current) use of anticoagulants; Z82.49 Family history of ischemic heart disease and other diseases of the circulatory system; Z80.3 Family history of malignant neoplasm of breast; Z79.899 Other long term (current) drug therapy; Z68.28 Body mass index [BMI] 28.0-28.9, adult

== ENCOUNTER 2020-07-03 12:18 | Inpatient (IN) | payer MEDICARE ==
[2020-07-03] VITALS: BP 126/52
[~2020-07-03] VITALS: Ht 165.1 cm; Wt 64.0 kg
[~2020-07-03 12:18] MED LIST changes: +ALDACTONE25 MG PO; +ATORVASTATIN CA40 M1 PO; +FLUOXETINE HCL10 MG PO; +FUROSEMIDE20 M1 PO; +FUROSEMIDE40 MG PO; +KLOR-CON M2020 ME1 PO; +POTASSIUM CHLO20 ME3 PO; +STOOL SOFTENER100 M3 PO; +WARFARIN SOD5 MG PO
[2020-07-03 12:33] VITALS: BP 135/61
[2020-07-03 13:16] LABS: BILIRUBIN 1+ (Negative); BLOOD Negative (Negative); CLARITY Clear (Clear); COLOR Dark Yellow (Yellow); GLUCOSE Negative (Negative); KETONE Trace (Negative); LEUKO ESTERASE 1+ (Negative); NITRITE Negative (Negative); PH 5.5 (4.5-8.0)
[2020-07-03 13:19] LABS: HEMATOCRIT 47.8 % (37.0-47.0); MEAN CELL VOLUME 108.9 fl (81.0-99.0); MEAN CORPUSCULAR HGB 31.9 pg (27.0-31.0); MEAN CORPUSCULAR HGB CONC 29.3 g/dl (33.0-37.0); MEAN PLATELET VOLUME 10.5 fl (9.6-12.3); PLATELET COUNT AUTOMATED 203 10*3/uL (130-400); RED BLOOD COUNT 4.39 10*6/uL (4.10-5.10); RED CELL DISTRI WIDTH 15.6 % (0-14.5); WHITE BLOOD COUNT 7.4 10*3/uL (4.8-10.8)
[2020-07-03 13:35] LABS: RBC 0-2 rbc/hpf (0-2); WBC 31-40 wbc/hpf (0-5)
[2020-07-03 13:36] LABS: ALBUMIN 3.1 gm/dl (3.1-4.5); ALKALINE PHOSPHATASE 82 U/L (45-117); BUN 11 mg/dl (7-24); CHLORIDE 110 mmol/L (98-107); CREATININE 0.98 mg/dL (0.55-1.02); POTASSIUM 4.1 mmol/L (3.5-5.1); SGOT/AST 19 IU/L (3-35); SGPT/ALT 14 U/L (12-78); SODIUM 143 mmol/L (136-145); TOTAL PROTEIN 7.3 gm/dL (6.4-8.2)
[2020-07-03 13:37] LABS: TROPONIN I < 0.015 ng/ml (<0.045)
[2020-07-03 13:48] LABS: PLATELET SUFFICIENCY NORMAL (NORMAL); SCHISTOCYTES FEW; TOTAL CELLS COUNTED 100 #CELLS
[2020-07-03 15:15] VITALS: BP 115/68
[2020-07-03 16:00] VITALS: BP 115/68
[2020-07-03] MEDS ORDERED: LASIX20 MG PO (18:04)
[2020-07-03] MEDS ORDERED: ROPINIROLE HY0.25 MG PO (18:04)
[2020-07-03] MEDS ORDERED: ZESTRIL2.5 MG PO (18:09)
[2020-07-03] MEDS ORDERED: POTASSIUM CHLO20 ME3 PO (18:10)
[2020-07-03] MEDS ORDERED: WARFARIN SOD5 MG PO (18:11)
[2020-07-03] MEDS ORDERED: MIRALAX POWDER17 G1 PO (18:12)
[2020-07-03 20:00] VITALS: BP 141/70
[2020-07-03 20:12] LABS: INTERNATIONAL NORM RATIO 1.8 (2.0-3.5)
[2020-07-04 06:10] LABS: ALBUMIN 2.5 gm/dl (3.1-4.5); ALKALINE PHOSPHATASE 66 U/L (45-117); BUN 15 mg/dl (7-24); CHLORIDE 109 mmol/L (98-107); CHOLESTEROL 89 mg/dL (<200); CREATININE 0.92 mg/dL (0.55-1.02); FREE T4 0.98 ng/dl (0.76-1.46); HDL CHOLESTEROL 38 mg/dl (40-60); LDL CHOLESTEROL 40 mg/dL (9-159); POTASSIUM 3.8 mmol/L (3.5-5.1); SGOT/AST 13 IU/L (3-35); SGPT/ALT 11 U/L (12-78); SODIUM 142 mmol/L (136-145); TOTAL PROTEIN 6.2 gm/dL (6.4-8.2); TRIGLYCERIDES 56 mg/dl (<150); VLDL CHOLESTEROL 11 mg/dL (6-40)
[2020-07-04 06:23] LABS: ACT PARTIAL THROMBO TIME 34.5 SECONDS (20.0-32.1)
[2020-07-04 06:45] LABS: BASO % 0.7 % (0.0-1.0); EOS # 0.1 10*3/uL (0.0-0.4); EOS % 2.2 % (1.0-4.0); HEMATOCRIT 41.2 % (37.0-47.0); LYMPH # 1.3 10*3/uL (1.3-4.4); LYMPH % 23.4 % (27.0-41.0); MEAN CORPUSCULAR HGB 31.9 pg (27.0-31.0); MEAN CORPUSCULAR HGB CONC 29.9 g/dl (33.0-37.0); MEAN PLATELET VOLUME 10.5 fl (9.6-12.3); MONO # 0.7 10*3/uL (0.1-1.0); MONO % 13.3 % (3.0-9.0); NEUT # 3.3 10*3/uL (2.3-7.9); NEUT % 60.2 % (47.0-73.0); PLATELET COUNT AUTOMATED 170 10*3/uL (130-400); RED BLOOD COUNT 3.85 10*6/uL (4.10-5.10); RED CELL DISTRI WIDTH 15.6 % (0-14.5); WHITE BLOOD COUNT 5.4 10*3/uL (4.8-10.8)
[2020-07-04 08:00] VITALS: BP 143/64
[2020-07-04 12:00] VITALS: BP 132/60
[2020-07-04 16:00] VITALS: BP 117/66
[2020-07-04 20:00] VITALS: BP 124/64
[2020-07-05] VITALS: BP 109/52
[2020-07-05 06:52] LABS: BASO % 0.4 % (0.0-1.0); EOS # 0.1 10*3/uL (0.0-0.4); HEMATOCRIT 41.7 % (37.0-47.0); LYMPH # 1.1 10*3/uL (1.3-4.4); LYMPH % 16.5 % (27.0-41.0); MEAN CORPUSCULAR HGB 32.3 pg (27.0-31.0); MEAN CORPUSCULAR HGB CONC 31.4 g/dl (33.0-37.0); MEAN PLATELET VOLUME 10.8 fl (9.6-12.3); MONO # 0.7 10*3/uL (0.1-1.0); MONO % 11.1 % (3.0-9.0); NEUT # 4.7 10*3/uL (2.3-7.9); NEUT % 70.9 % (47.0-73.0); PLATELET COUNT AUTOMATED 197 10*3/uL (130-400); RED BLOOD COUNT 4.05 10*6/uL (4.10-5.10); RED CELL DISTRI WIDTH 15.2 % (0-14.5); WHITE BLOOD COUNT 6.7 10*3/uL (4.8-10.8)
[2020-07-05 06:55] LABS: BUN 15 mg/dl (7-24); CHLORIDE 101 mmol/L (98-107); POTASSIUM 3.6 mmol/L (3.5-5.1); SODIUM 139 mmol/L (136-145)
[2020-07-05 08:00] VITALS: BP 139/62
[2020-07-05 09:35] LABS: INTERNATIONAL NORM RATIO 1.9 (2.0-3.5)
[2020-07-05 12:00] VITALS: BP 110/73
[2020-07-05 16:00] VITALS: BP 118/55
[2020-07-05 20:00] VITALS: BP 126/42
[2020-07-06] VITALS: BP 114/63
[2020-07-06 07:08] LABS: BUN 15 mg/dl (7-24); CHLORIDE 102 mmol/L (98-107); CREATININE 0.76 mg/dL (0.55-1.02); POTASSIUM 3.1 mmol/L (3.5-5.1); SODIUM 139 mmol/L (136-145)
[2020-07-06 07:18] LABS: INTERNATIONAL NORM RATIO 1.8 (2.0-3.5)
[2020-07-06 07:45] VITALS: BP 106/88
[2020-07-06 12:00] VITALS: BP 113/54
== END 2020-07-06 13:37 | disposition home health service (06) | DRG 682 ==
LOC: ED 12:18 → 5E 14:13 → EDHOLD 14:13 → 5E 14:31
PROVIDERS: Hospitalist; Internal Medicine; Student in an Organized Health Care Education/Training Program; ADMIT Internal Medicine; ATTEND Internal Medicine
DX: N17.0 Acute kidney failure with tubular necrosis (principal); E43 Unspecified severe protein-calorie malnutrition; I50.33 Acute on chronic diastolic (congestive) heart failure; J96.11 Chronic respiratory failure with hypoxia; I11.0 Hypertensive heart disease with heart failure; I50.812 Chronic right heart failure; I27.20 Pulmonary hypertension, unspecified; E78.5 Hyperlipidemia, unspecified; F32.9 Major depressive disorder, single episode, unspecified; Z80.3 Family history of malignant neoplasm of breast; I08.3 Combined rheumatic disorders of mitral, aortic and tricuspid valves; K74.60 Unspecified cirrhosis of liver; Z91.14 Patient's other noncompliance with medication regimen; Z86.718 Personal history of other venous thrombosis and embolism; J84.10 Pulmonary fibrosis, unspecified; Z99.81 Dependence on supplemental oxygen; Z82.49 Family history of ischemic heart disease and other diseases of the circulatory system; Z79.899 Other long term (current) drug therapy; Z79.1 Long term (current) use of non-steroidal anti-inflammatories (NSAID); Z79.01 Long term (current) use of anticoagulants; Z90.710 Acquired absence of both cervix and uterus; Z68.25 Body mass index [BMI] 25.0-25.9, adult

== ENCOUNTER 2020-10-19 15:51 | Emergency (ER) | payer MEDICARE ==
[~2020-10-19] VITALS: Ht 165.1 cm; Wt 67.1 kg
[~2020-10-19 15:51] MED LIST changes: +MIRALAX POWDER17 G1 PO; +ROPINIROLE HY0.25 MG PO; +ZESTRIL2.5 MG PO
[2020-10-19 15:55] VITALS: BP 131/64
== END 2020-10-19 19:48 | disposition home or self-care (01) ==
LOC: ED 15:51
DX: M77.31 Calcaneal spur, right foot (principal); Z79.899 Other long term (current) drug therapy; Z79.01 Long term (current) use of anticoagulants; Z98.890 Other specified postprocedural states; Z90.711 Acquired absence of uterus with remaining cervical stump

== ENCOUNTER 2021-04-02 22:55 | Inpatient (IN) | payer MEDICARE ==
[~2021-04-02] VITALS: Ht 165.1 cm; Wt 123.0 kg
[2021-04-02 23:02] VITALS: BP 166/78
[2021-04-03 01:28] VITALS: BP 151/78
[2021-04-03 07:30] VITALS: BP 154/80
[2021-04-03 08:34] VITALS: BP 153/91
[2021-04-03 12:00] VITALS: BP 154/82
[2021-04-03 16:00] VITALS: BP 139/87
[2021-04-03 20:00] VITALS: BP 152/77
[2021-04-04] VITALS: BP 157/89
[2021-04-04 06:38] LABS: BASO % 0.5 % (0.0-1.0); EOS # 0.1 10*3/uL (0.0-0.4); EOS % 1.1 % (1.0-4.0); HEMATOCRIT 42.2 % (37.0-47.0); LYMPH # 0.8 10*3/uL (1.3-4.4); LYMPH % 12.6 % (27.0-41.0); MEAN CELL VOLUME 97.9 fl (81.0-99.0); MEAN CORPUSCULAR HGB 30.6 pg (27.0-31.0); MEAN CORPUSCULAR HGB CONC 31.3 g/dl (33.0-37.0); MEAN PLATELET VOLUME 10.7 fl (9.6-12.3); MONO # 0.6 10*3/uL (0.1-1.0); MONO % 9.1 % (3.0-9.0); NEUT # 4.8 10*3/uL (2.3-7.9); NEUT % 76.5 % (47.0-73.0); PLATELET COUNT AUTOMATED 195 10*3/uL (130-400); RED BLOOD COUNT 4.31 10*6/uL (4.10-5.10); RED CELL DISTRI WIDTH 17.1 % (0-14.5); WHITE BLOOD COUNT 6.3 10*3/uL (4.8-10.8)
[2021-04-04 06:53] LABS: BUN 14 mg/dl (7-24); CHLORIDE 107 mmol/L (98-107); CREATININE 0.96 mg/dL (0.55-1.02); POTASSIUM 3.8 mmol/L (3.5-5.1); SODIUM 137 mmol/L (136-145)
[2021-04-04 07:02] LABS: INTERNATIONAL NORM RATIO 4.6 (2.0-3.5)
[2021-04-04 08:00] VITALS: BP 147/40
[2021-04-04 12:00] VITALS: BP 128/89
[2021-04-04 16:00] VITALS: BP 139/111
[2021-04-04 20:00] VITALS: BP 110/75
[2021-04-05] VITALS: BP 145/74
[2021-04-05 06:38] LABS: BASO % 0.8 % (0.0-1.0); EOS # 0.1 10*3/uL (0.0-0.4); EOS % 1.9 % (1.0-4.0); HEMATOCRIT 41.5 % (37.0-47.0); LYMPH # 0.8 10*3/uL (1.3-4.4); LYMPH % 14.5 % (27.0-41.0); MEAN CELL VOLUME 99.5 fl (81.0-99.0); MEAN CORPUSCULAR HGB 30.7 pg (27.0-31.0); MEAN CORPUSCULAR HGB CONC 30.8 g/dl (33.0-37.0); MEAN PLATELET VOLUME 10.3 fl (9.6-12.3); MONO # 0.7 10*3/uL (0.1-1.0); MONO % 12.6 % (3.0-9.0); NEUT # 3.7 10*3/uL (2.3-7.9); NEUT % 69.8 % (47.0-73.0); PLATELET COUNT AUTOMATED 183 10*3/uL (130-400); RED BLOOD COUNT 4.17 10*6/uL (4.10-5.10); RED CELL DISTRI WIDTH 17.2 % (0-14.5); WHITE BLOOD COUNT 5.2 10*3/uL (4.8-10.8)
[2021-04-05 06:54] LABS: BUN 13 mg/dl (7-24); CHLORIDE 107 mmol/L (98-107); CREATININE 1.02 mg/dL (0.55-1.02); POTASSIUM 3.4 mmol/L (3.5-5.1); SODIUM 139 mmol/L (136-145)
[2021-04-05 07:15] LABS: INTERNATIONAL NORM RATIO 3.9 (2.0-3.5)
[2021-04-05 08:00] VITALS: BP 142/74
[2021-04-05 12:00] VITALS: BP 145/72
[2021-04-05] MEDS ORDERED: ZITHROMAX250 MG PO ×2 (13:30)
== END 2021-04-05 14:53 | disposition home or self-care (01) | DRG 689 ==
LOC: ED 22:55 → EDHOLD 04-03 02:55 → 5E 04-03 02:55
PROVIDERS: Internal Medicine; Student in an Organized Health Care Education/Training Program; ADMIT Internal Medicine; ATTEND Internal Medicine
DX: N30.01 Acute cystitis with hematuria (principal); I50.33 Acute on chronic diastolic (congestive) heart failure; N17.0 Acute kidney failure with tubular necrosis; J96.11 Chronic respiratory failure with hypoxia; F33.9 Major depressive disorder, recurrent, unspecified; S00.03XA Contusion of scalp, initial encounter; M54.9 Dorsalgia, unspecified; G89.29 Other chronic pain; E55.9 Vitamin D deficiency, unspecified; E78.2 Mixed hyperlipidemia; I27.20 Pulmonary hypertension, unspecified; R26.2 Difficulty in walking, not elsewhere classified; B96.20 Unspecified Escherichia coli [E. coli] as the cause of diseases classified elsewhere; T14.8XXA Other injury of unspecified body region, initial encounter; S09.90XA Unspecified injury of head, initial encounter; I11.0 Hypertensive heart disease with heart failure; I71.4 Abdominal aortic aneurysm, without rupture; K74.60 Unspecified cirrhosis of liver; Z20.822 Contact with and (suspected) exposure to COVID-19; I50.810 Right heart failure, unspecified; W19.XXXA Unspecified fall, initial encounter; Y93.89 Activity, other specified; Y99.8 Other external cause status; Y92.009 Unspecified place in unspecified non-institutional (private) residence as the place of occurrence of the external cause; Z79.01 Long term (current) use of anticoagulants; Z99.81 Dependence on supplemental oxygen; Z82.49 Family history of ischemic heart disease and other diseases of the circulatory system; Z80.3 Family history of malignant neoplasm of breast; Z79.1 Long term (current) use of non-steroidal anti-inflammatories (NSAID); Z79.899 Other long term (current) drug therapy

== ENCOUNTER 2021-04-07 14:56 | Inpatient (IN) | payer MEDICARE ==
[~2021-04-07] VITALS: Ht 165.1 cm; Wt 70.4 kg
[~2021-04-07 14:56] MED LIST changes: +ZITHROMAX250 MG PO
[2021-04-07 14:59] VITALS: BP 144/66
[2021-04-07 18:56] LABS: BASO % 0.6 % (0.0-1.0); EOS % 0.6 % (1.0-4.0); HEMATOCRIT 46.7 % (37.0-47.0); LYMPH # 0.9 10*3/uL (1.3-4.4); MEAN CELL VOLUME 98.5 fl (81.0-99.0); MEAN CORPUSCULAR HGB 30.6 pg (27.0-31.0); MEAN PLATELET VOLUME 10.5 fl (9.6-12.3); MONO # 0.9 10*3/uL (0.1-1.0); MONO % 13.5 % (3.0-9.0); NEUT # 4.9 10*3/uL (2.3-7.9); NEUT % 71.9 % (47.0-73.0); PLATELET COUNT AUTOMATED 203 10*3/uL (130-400); RED BLOOD COUNT 4.74 10*6/uL (4.10-5.10); WHITE BLOOD COUNT 6.8 10*3/uL (4.8-10.8)
[2021-04-07 19:09] LABS: ACT PARTIAL THROMBO TIME 34.7 SECONDS (20.0-32.1); INTERNATIONAL NORM RATIO 2.5 (2.0-3.5)
[2021-04-07 19:12] LABS: ALBUMIN 2.5 gm/dl (3.1-4.5); CREATININE 1.4 mg/dL (0.55-1.02); POTASSIUM 3.7 mmol/L (3.5-5.1); TOTAL PROTEIN 7.6 gm/dL (6.4-8.2)
[2021-04-07 19:17] VITALS: BP 142/77
[2021-04-07 20:05] VITALS: BP 122/76
[2021-04-08] VITALS (8 sets, daily range): BP systolic 108–129; BP diastolic 56–89
[2021-04-08 01:46] LABS: BILIRUBIN Negative (Negative); BLOOD Trace-Intact (Negative); CLARITY Clear (Clear); COLOR Yellow (Yellow); GLUCOSE Negative (Negative); KETONE Negative (Negative); LEUKO ESTERASE Negative (Negative); NITRITE Negative (Negative); PH 7.5 (4.5-8.0); SPECIFIC GRAVITY <= 1.005 (1.001-1.030)
[2021-04-08 01:55] LABS: WBC 0-2 wbc/hpf (0-5)
[2021-04-08 05:12] LABS: ALBUMIN 2.2 gm/dl (3.1-4.5); CREATININE 1.2 mg/dL (0.55-1.02); POTASSIUM 3.6 mmol/L (3.5-5.1)
[2021-04-08 06:02] LABS: BASO % 0.5 % (0.0-1.0); EOS # 0.1 10*3/uL (0.0-0.4); EOS % 0.9 % (1.0-4.0); HEMATOCRIT 43.1 % (37.0-47.0); LYMPH # 0.8 10*3/uL (1.3-4.4); LYMPH % 12.9 % (27.0-41.0); MEAN CELL VOLUME 97.1 fl (81.0-99.0); MEAN CORPUSCULAR HGB 30.6 pg (27.0-31.0); MEAN CORPUSCULAR HGB CONC 31.6 g/dl (33.0-37.0); MEAN PLATELET VOLUME 10.4 fl (9.6-12.3); MONO # 0.6 10*3/uL (0.1-1.0); MONO % 9.8 % (3.0-9.0); NEUT # 4.9 10*3/uL (2.3-7.9); NEUT % 74.4 % (47.0-73.0); PLATELET COUNT AUTOMATED 200 10*3/uL (130-400); RED BLOOD COUNT 4.44 10*6/uL (4.10-5.10); RED CELL DISTRI WIDTH 16.7 % (0-14.5); WHITE BLOOD COUNT 6.5 10*3/uL (4.8-10.8)
[2021-04-08 06:13] LABS: INTERNATIONAL NORM RATIO 2.7 (2.0-3.5)
[2021-04-08] MEDS ORDERED: LIPITOR40 MG PO (15:33)
[2021-04-08] MEDS ORDERED: Coumadin5 MG PO (15:34)
[2021-04-08] MEDS ORDERED: ROPINIROLE HY0.25 MG PO (15:34)
[2021-04-08] MEDS ORDERED: SEPTDS PO (15:35)
[2021-04-09] VITALS: BP 107/65
[2021-04-09 04:33] LABS: BASO % 0.4 % (0.0-1.0); EOS # 0.1 10*3/uL (0.0-0.4); HEMATOCRIT 46.7 % (37.0-47.0); LYMPH # 0.8 10*3/uL (1.3-4.4); MEAN CELL VOLUME 99.4 fl (81.0-99.0); MEAN CORPUSCULAR HGB 30.6 pg (27.0-31.0); MEAN CORPUSCULAR HGB CONC 30.8 g/dl (33.0-37.0); MEAN PLATELET VOLUME 10.6 fl (9.6-12.3); MONO # 0.8 10*3/uL (0.1-1.0); MONO % 11.7 % (3.0-9.0); NEUT # 5.2 10*3/uL (2.3-7.9); NEUT % 74.8 % (47.0-73.0); PLATELET COUNT AUTOMATED 191 10*3/uL (130-400); RED CELL DISTRI WIDTH 16.9 % (0-14.5)
[2021-04-09 04:48] LABS: ALBUMIN 2.5 gm/dl (3.1-4.5); CREATININE 1.22 mg/dL (0.55-1.02); POTASSIUM 3.8 mmol/L (3.5-5.1); TOTAL PROTEIN 8.1 gm/dL (6.4-8.2)
[2021-04-09 08:00] VITALS: BP 125/62
[2021-04-09] MEDS ORDERED: PERCOCET 5-3251 EACH PO (11:57)
[2021-04-09 12:00] VITALS: BP 117/74
== END 2021-04-09 16:14 | DRG 291 ==
LOC: ED 14:56 → EDHOLD 18:43 → 5E 04-08 13:03
PROVIDERS: Emergency Medicine; Internal Medicine; ADMIT Student in an Organized Health Care Education/Training Program; ATTEND Student in an Organized Health Care Education/Training Program
DX: I13.0 Hypertensive heart and chronic kidney disease with heart failure and stage 1 through stage 4 chronic kidney disease, or unspecified chronic kidney disease (principal); I50.33 Acute on chronic diastolic (congestive) heart failure; N17.0 Acute kidney failure with tubular necrosis; J96.11 Chronic respiratory failure with hypoxia; E44.0 Moderate protein-calorie malnutrition; E87.2 Acidosis; F33.9 Major depressive disorder, recurrent, unspecified; Z79.01 Long term (current) use of anticoagulants; Z20.822 Contact with and (suspected) exposure to COVID-19; R26.2 Difficulty in walking, not elsewhere classified; M54.9 Dorsalgia, unspecified; I08.2 Rheumatic disorders of both aortic and tricuspid valves; G89.29 Other chronic pain; I11.0 Hypertensive heart disease with heart failure; E55.9 Vitamin D deficiency, unspecified; E78.2 Mixed hyperlipidemia; I50.810 Right heart failure, unspecified; I27.20 Pulmonary hypertension, unspecified; K74.60 Unspecified cirrhosis of liver; Z99.81 Dependence on supplemental oxygen; Z86.718 Personal history of other venous thrombosis and embolism; Z82.49 Family history of ischemic heart disease and other diseases of the circulatory system; Z79.1 Long term (current) use of non-steroidal anti-inflammatories (NSAID); Z79.899 Other long term (current) drug therapy; Z68.25 Body mass index [BMI] 25.0-25.9, adult

== ENCOUNTER 2021-04-27 01:03 | Emergency (ER) | payer MEDICARE ==
[~2021-04-27] VITALS: Ht 162.5 cm; Wt 65.8 kg
[~2021-04-27 01:03] MED LIST changes: +Coumadin5 MG PO; +LIPITOR40 MG PO
[2021-04-27 01:26] LABS: BASO % 0.7 % (0.0-1.0); EOS % 0.7 % (1.0-4.0); HEMATOCRIT 43.2 % (37.0-47.0); LYMPH % 15.8 % (27.0-41.0); MEAN CELL VOLUME 95.4 fl (81.0-99.0); MEAN CORPUSCULAR HGB 30.5 pg (27.0-31.0); MEAN CORPUSCULAR HGB CONC 31.9 g/dl (33.0-37.0); MEAN PLATELET VOLUME 9.6 fl (9.6-12.3); MONO # 0.7 10*3/uL (0.1-1.0); MONO % 11.4 % (3.0-9.0); NEUT # 4.4 10*3/uL (2.3-7.9); NEUT % 71.1 % (47.0-73.0); PLATELET COUNT AUTOMATED 305 10*3/uL (130-400); RED BLOOD COUNT 4.53 10*6/uL (4.10-5.10); RED CELL DISTRI WIDTH 16.9 % (0-14.5); WHITE BLOOD COUNT 6.2 10*3/uL (4.8-10.8)
[2021-04-27 01:43] LABS: ALBUMIN 1.9 gm/dl (3.1-4.5); CREATININE 1.52 mg/dL (0.55-1.02); POTASSIUM 5.3 mmol/L (3.5-5.1); TOTAL PROTEIN 7.2 gm/dL (6.4-8.2)
[2021-04-27 03:23] LABS: BILIRUBIN Negative (Negative); BLOOD Negative (Negative); CLARITY Clear (Clear); COLOR Dark Yellow (Yellow); GLUCOSE Negative (Negative); KETONE Trace (Negative); LEUKO ESTERASE Trace (Negative); NITRITE Negative (Negative); SPECIFIC GRAVITY 1.015 (1.001-1.030)
[2021-04-27 03:30] LABS: EPITHELIAL CELLS 31-40; HYALINE CAST 41-50
[2021-04-27 09:13] VITALS: BP 102/53
== END 2021-04-27 10:15 | disposition home or self-care (01) ==
LOC: ED 01:03
PROVIDERS: Internal Medicine
DX: K74.60 Unspecified cirrhosis of liver (principal); N17.9 Acute kidney failure, unspecified; N18.9 Chronic kidney disease, unspecified; E88.09 Other disorders of plasma-protein metabolism, not elsewhere classified; E87.8 Other disorders of electrolyte and fluid balance, not elsewhere classified; Z79.899 Other long term (current) drug therapy; Z79.01 Long term (current) use of anticoagulants; Z98.890 Other specified postprocedural states; Z90.710 Acquired absence of both cervix and uterus; Z87.891 Personal history of nicotine dependence